=== PATIENT | male | born 1995 | race Hispanic/Latino ===

== ENCOUNTER 2018-08-14 14:31 | Emergency (ER) | payer OTHER ==
[2018-08-14 14:37] VITALS: BP 126/75; PULSE 106; RESP 18; TEMP 97.9; O2SAT 99
--- NOTE | 2018-08-14 16:12 | ED PDOC ---
HPI: Seizure Time Seen by Provider: 08/14/18 15:19 Chief Complaint (Nursing): Seizure Chief Complaint (Provider): Seizure History Per: Patient History/Exam Limitations: no limitations Recent Seizure Activity Began: Unknown Length Of Seizures (Duration): Unknown Additional Complaint(s): 23yo male, otherwise well, brought to ER by EMS for evaluation after a "seizure" episode. Patient states he has a history of seizures, but has never been formally diagnosed with seizures. Patient denies being on any medication for his symptoms. He also states he is unsure of what happened today, and states "when I woke up, I was in the back of an ambulance." Per EMS, patient noted to have a generalized seizure lasting 3 minutes; no tongue bite, urine/stool incontinence. Patient noted to have blood glucose level of 101mg/dl on field. He currently reports a headache and denies any other complaints. PMD: None Past Medical History Reviewed: Historical Data, Nursing Documentation, Vital Signs Vital Signs: Last Vital Signs Temp 97.9 F 08/14/18 14:33 Pulse 106 H 08/14/18 14:33 Resp 18 08/14/18 14:33 BP 126/75 08/14/18 14:33 Pulse Ox 99 08/14/18 14:33 - Medical History PMH: Seizures - Surgical History Surgical History: No Surg Hx - Family History Family History: States: No Known Family Hx - Social History Current smoker - smoking cessation education provided: No Alcohol: None Drugs: Cannabis - Home Medications Home Medications: Ambulatory Orders Medication Instructions Recorded Levetiracetam [Keppra] 500 mg PO BID #14 tablet 08/14/18 - Allergies Allergies/Adverse Reactions: Allergies Allergy/AdvReac Type Severity Reaction Status Date / Time No Known Allergies Allergy Verified 08/14/18 14:33 Review of Systems ROS Statement: Except As Marked, All Systems Reviewed And Found Negative Constitutional: Negative for: Fever, Chills Eyes: Negative for: Vision Change Cardiovascular: Negative for: Chest Pain Respiratory: Negative for: Cough, Shortness of Breath Gastrointestinal: Negative for: Vomiting Genitourinary Male: Negative for: Dysuria, Frequency, Incontinence Neurological: Positive for: Seizures, Headache. Negative for: Weakness, Numbness Physical Exam - Reviewed Nursing Documentation Reviewed: Yes Vital Signs Reviewed: Yes - Physical Exam Appears: Positive for: Non-toxic, No Acute Distress Head Exam: Positive for: ATRAUMATIC, NORMAL INSPECTION, NORMOCEPHALIC Skin: Positive for: Normal Color Eye Exam: Positive for: Normal appearance, EOMI, PERRL Neck: Positive for: Normal, Supple Cardiovascular/Chest: Positive for: Regular Rate, Rhythm Respiratory: Positive for: Normal Breath Sounds Gastrointestinal/Abdominal: Positive for: Normal Exam, Soft Back: Positive for: Normal Inspection Extremity: Positive for: Normal ROM, Other (5/5 strength all extremities; normal sensations). Negative for: Deformity Neurologic/Psych: Positive for: Alert, Oriented, Gait (steady). Negative for: Motor/Sensory Deficits, Aphasia, Facial Droop - Laboratory Results Result Diagrams: 08/14/18 16:27 08/14/18 16:27 - ECG O2 Sat by Pulse Oximetry: 99 (RA) Pulse Ox Interpretation: Normal Medical Decision Making Medical Decision Makinyo male brought to ER by EMS for evaluation after a seizure like episode Plan: -- Labs rul eout infection -- CT Head 1640 CT Head FINDINGS: HEMORRHAGE: No intracranial hemorrhage. BRAIN: No mass effect or edema. No atrophy or chronic microvascular ischemic changes. VENTRICLES: No hydrocephalus. CALVARIUM: Unremarkable. PARANASAL SINUSES: Unremarkable as visualized. No significant inflammatory changes. MASTOID AIR CELLS: Unremarkable as visualized. No inflammatory changes. OTHER FINDINGS: None. IMPRESSION: No acute intracranial pathology identified. 1646 Labs reviewed, no clinically significant abnormalities. Patient informed of CT as well as labs results; informed on strict follow up with neurologist (referral provided). Informed not to drive and operate heavy machinery due to seizures until neurologist evaluation. Scribe Attestation: Documented by Micaela Lui acting as a scribe for Vik Hampton MD Provider Attestation: All medical record entries made by the Scribe were at my direction and personally dictated by me. I have reviewed the chart and agree that the record accurately reflects my personal performance of the history, physical exam, medical decision making, and the department course for this patient. I have also personally directed, reviewed, and agree with the discharge instructions and disposition. Time: 1645 -- Spoke with neurologist semiconductor assembler Dr Herrera who advised to give patient 1000 mg PO of Keppra now and for patient to be discharged home with 500 mg BID of Keppra an doutpatient follow up with her next tuesday. information relayed to patient. Patient is stable for discharged home. Scribe Attestation: Documented by Darron Richards, acting as a scribe for Candice Romo MD. Provider Scribe Attestation: All medical record entries made by the Scribe were at my direction and personally dictated by me. I have reviewed the chart and agree that the record accurately reflects my personal performance of the history, physical exam, medical decision making, and the department course for this patient. I have also personally directed, reviewed, and agree with the discharge instructions and disposition. Disposition - Clinical Impression Clinical Impression: Seizure disorder - Patient ED Disposition Is Patient to be Admitted: No Counseled Patient/Family Regarding: Studies Performed, Diagnosis, Need For Followup, Rx Given - Disposition Referrals: [facility] [Outside] Anyi Herrera MD [Medical Doctor] - Disposition: Routine/Home Disposition Time: 17:00 Condition: STABLE Additional Instructions: follow up with dr herrera next tuesday [address] [place] [address] at [address] or operate heavy machinery until you are evaluated by a neurologist return to the ED with any worsening or concerning symptoms Prescriptions: Levetiracetam [Keppra] 500 mg PO BID #14 tablet Instructions: Seizures, Adult (DC) Forms: [employer] (Kazakh)
[2018-08-14 16:34] LABS: BASO % 0.8 % (0.0-2.0); EOS # 0.1 K/uL (0.0-0.7); HEMOGLOBIN 14.9 g/dL (12.0-18.0); LYMPH # 1.7 K/uL (1.0-4.3); LYMPH % 30.3 % (20.0-40.0); MEAN CELL VOLUME 87.1 fl (80.0-94.0); MEAN CORPUSCULAR HEMOGLOBIN 28.6 pg (27.0-31.0); MEAN CORPUSCULAR HGB CONC 32.9 g/dL (33.0-37.0); MEAN PLATELET VOLUME 9.3 fl (7.2-11.7); MONO # 0.3 K/uL (0.0-0.8); MONO % 5.9 % (0.0-10.0); NEUT # 3.5 K/uL (1.8-7.0); NRBC % 0.1 % (0.0-0.0); RBC 5.19 Mil/uL (4.40-5.90); RED CELL DISTRIBUTION WIDTH 13.6 % (11.5-14.5); WHITE BLOOD COUNT 5.7 K/uL (4.8-10.8)
[2018-08-14 16:43] LABS: ALB/GLOB RATIO 1.5 (1.0-2.1); ALBUMIN 4.6 g/dL (3.5-5.0); ALT/SGPT 19 U/L (21-72); AST/SGOT 23 U/L (17-59); BLOOD UREA NITROGEN 10 mg/dl (9-20); CALCIUM 9.5 mg/dL (8.4-10.2); GFR NON-AFRICAN AMERICAN > 60
--- NOTE | 2018-08-14 16:43 | CT ---
Date of service: 08/14/2018 PROCEDURE: CT HEAD WITHOUT CONTRAST. HISTORY: headache sp seizure COMPARISON: None available. TECHNIQUE: Axial computed tomography images were obtained through the head/brain without intravenous contrast. Radiation dose: Total exam DLP = 834.59 mGy-cm. This CT exam was performed using one or more of the following dose reduction techniques: Automated exposure control, adjustment of the mA and/or kV according to patient size, and/or use of iterative reconstruction technique. FINDINGS: HEMORRHAGE: No intracranial hemorrhage. BRAIN: No mass effect or edema. No atrophy or chronic microvascular ischemic changes. VENTRICLES: No hydrocephalus. CALVARIUM: Unremarkable. PARANASAL SINUSES: Unremarkable as visualized. No significant inflammatory changes. MASTOID AIR CELLS: Unremarkable as visualized. No inflammatory changes. OTHER FINDINGS: None. IMPRESSION: No acute intracranial pathology identified.
== END 2018-08-14 18:08 | disposition home or self-care (01) ==
LOC: H.ER 14:31
DX: G40.909 Epilepsy, unspecified, not intractable, without status epilepticus (principal); Z79.899 Other long term (current) drug therapy

== ENCOUNTER 2018-08-25 13:23 | Emergency (ER) | payer OTHER ==
[2018-08-25 13:41] VITALS: RESP 18
--- NOTE | 2018-08-25 14:05 | ED PDOC ---
HPI: Seizure Time Seen by Provider: 08/25/18 13:42 Chief Complaint (Nursing): Seizure History Per: Patient Recent Seizure Activity Began: Just Before Arrival Length Of Seizures (Duration): Unknown Precipitating Factor(s): Recent Change In Medication Or Dose Associated Symptoms: Bit Tongue Post-ictal Period: Yes Additional Complaint(s): Witnessed seizure by coworker, not present in ED. Pt has h/o seizure disorder but is noncompliant with meds. Has aura, taste in mouth. Pt sates he bit his tongue. Next remembers being on floor. Did not hit hos head according to coworkers Past Medical History Vital Signs: Last Vital Signs Temp 97.5 F L 08/25/18 13:39 Pulse 106 H 08/25/18 13:39 Resp 18 08/25/18 13:39 BP 142/59 L 08/25/18 13:39 Pulse Ox 99 08/25/18 13:39 - Medical History PMH: Seizures - Family History Family History: States: Unknown Family Hx - Home Medications Home Medications: Ambulatory Orders Medication Instructions Recorded Levetiracetam [Keppra] 500 mg PO BID #14 tablet 08/14/18 Levetiracetam [Keppra] 500 mg PO BID #30 tablet 08/25/18 - Allergies Allergies/Adverse Reactions: Allergies Allergy/AdvReac Type Severity Reaction Status Date / Time No Known Allergies Allergy Verified 08/25/18 13:39 Review of Systems ROS Statement: Except As Marked, All Systems Reviewed And Found Negative Neurological: Positive for: Seizures Physical Exam - Reviewed Nursing Documentation Reviewed: Yes Vital Signs Reviewed: Yes - Physical Exam Appears: Positive for: Non-toxic, No Acute Distress Head Exam: Positive for: ATRAUMATIC, NORMAL INSPECTION, NORMOCEPHALIC Skin: Positive for: Normal Color, Warm, DRY Eye Exam: Positive for: EOMI, Normal appearance, PERRL ENT: Positive for: Other (Bite young right side of tongue) Neck: Positive for: Normal, Painless ROM Cardiovascular/Chest: Positive for: Regular Rate, Rhythm Respiratory: Positive for: CNT, Normal Breath Sounds Gastrointestinal/Abdominal: Positive for: Normal Exam, Soft Back: Positive for: Normal Inspection Extremity: Positive for: Normal ROM Neurologic/Psych: Positive for: Alert, Oriented. Negative for: Motor/Sensory Deficits - Laboratory Results Result Diagrams: 08/25/18 14:10 08/25/18 14:10 - ECG O2 Sat by Pulse Oximetry: 99 Disposition - Clinical Impression Clinical Impression: Recurrent seizures - Patient ED Disposition Is Patient to be Admitted: No Counseled Patient/Family Regarding: Studies Performed, Diagnosis, Need For Followup, Rx Given - Disposition Referrals: Anyi Shah MD [Medical Doctor] - Disposition: Routine/Home Disposition Time: 15:08 Condition: FAIR Prescriptions: Levetiracetam [Keppra] 500 mg PO BID #30 tablet Instructions: Seizures, Adult (DC) Forms: [employer] (Occitan)
[2018-08-25 14:42] LABS: EOS % 1.1 % (0.0-4.0); HEMOGLOBIN 14.9 g/dL (12.0-18.0); LYMPH # 1.3 K/uL (1.0-4.3); LYMPH % 28.6 % (20.0-40.0); MEAN CELL VOLUME 85.8 fl (80.0-94.0); MEAN CORPUSCULAR HGB CONC 33.8 g/dL (33.0-37.0); MONO # 0.3 K/uL (0.0-0.8); MONO % 5.9 % (0.0-10.0); NEUT # 2.9 K/uL (1.8-7.0); NEUT % 63.4 % (50.0-75.0); NRBC % 0.1 % (0.0-0.0); RBC 5.13 Mil/uL (4.40-5.90); RED CELL DISTRIBUTION WIDTH 13.4 % (11.5-14.5); WHITE BLOOD COUNT 4.6 K/uL (4.8-10.8)
[2018-08-25 14:57] LABS: ALB/GLOB RATIO 1.6 (1.0-2.1); ALT/SGPT 20 U/L (21-72); AST/SGOT 30 U/L (17-59); BLOOD UREA NITROGEN 15 mg/dl (9-20); CALCIUM 9.7 mg/dL (8.4-10.2); GFR NON-AFRICAN AMERICAN > 60
[2018-08-25 16:36] VITALS: BP 126/69; PULSE 72; TEMP 97.9; O2SAT 96
== END 2018-08-25 16:37 | disposition home or self-care (01) ==
LOC: H.ER 13:23
DX: G40.909 Epilepsy, unspecified, not intractable, without status epilepticus (principal)